=== PATIENT | male | born 1960 | race Caucasian/White ===

== ENCOUNTER → 2016-11-18 | Outpatient (CLI) | payer OTHER | END | disposition disaster alternative care site (69) | LOC: GRAD 12:09 | DX: Z47.89 Encounter for other orthopedic aftercare (principal); S43.421D Sprain of right rotator cuff capsule, subsequent encounter; M75.101 Unspecified rotator cuff tear or rupture of right shoulder, not specified as traumatic; Z98.890 Other specified postprocedural states; X58.XXXD Exposure to other specified factors, subsequent encounter ==